=== PATIENT | male | born 1985 | race Caucasian/White ===

== ENCOUNTER 2020-09-11 14:39 | Inpatient (IN) | payer BC ==
[~2020-09-11] VITALS: Ht 177.8 cm; Wt 74.4 kg
--- NOTE | 2020-09-11 14:50 | NUR ---
[id number] [facility] for seizure like activity lasting 1 minute. +oral trauma. bg 165 user acceptance tester. Patient a/ox4, breathing even and unlabored, no sob noted, needs attended, kept comfortable.
[2020-09-11] MEDS ORDERED: IV NS 0.9% 1,000 ML BAG IV ONE (16:00)
[2020-09-11] MEDS ORDERED: LEVETIRACETAM (500MG) 1,000 MG in IV NS 0.9% 100 ML IV SCH (16:00)
[2020-09-11] MEDS ORDERED: LEVETIRACETAM (500MG) 1,000 MG in IV NS 0.9% 100 ML IV ONE (16:13)
--- NOTE | 2020-09-11 16:14 | NUR ---
patient a/ox4, was able to ambulate to restroom and gave a urine sample. Sample sent to the lab.
[2020-09-11 16:28] LABS: ALANINE AMINOTRANSFERASE 53 U/L (12-78); ALBUMIN 4.3 g/dL (3.4-5.0); ALCOHOL, BLOOD < 3 mg/dL (0-0); ALKALINE PHOSPHATASE 82 U/L (46-116); ASPARTATE AMINOTRANSFERASE 97 U/L (15-37); BILIRUBIN,DIRECT 0.7 mg/dL (0.0-0.2); BILIRUBIN,TOTAL 2.1 mg/dL (0.2-1.0); CALCIUM, SERUM 10.1 mg/dL (8.5-10.1); CARBON DIOXIDE 27 mmol/L (21-32); CHLORIDE 91 mmol/L (98-107); GLUCOSE 145 mg/dL (74-106); SODIUM SERUM 130 mmol/L (136-145); TOTAL PROTEIN, SERUM 8.4 g/dL (6.4-8.2); UREA NITROGEN, BLOOD 6 mg/dL (7-18)
[2020-09-11 16:29] LABS: BASOPHILS % (AUTO) 0.2 % (0.0-2.0); EOSINOPHILS % (AUTO) 0.1 % (0.0-6.0); HEMATOCRIT 42 % (39-51); HEMOGLOBIN 14.5 g/dL (13.5-17.5); LYMPHOCYTES # (AUTO) 0.6 /CMM (0.8-4.8); LYMPHOCYTES % (AUTO) 9.1 % (20.0-44.0); MEAN CORPUSCULAR HGB CONC 34 g/dl (31.0-36.0); MEAN CORPUSCULAR VOLUME 106 fL (80-96); MONOCYTES # (AUTO) 0.3 /CMM (0.1-1.30); MONOCYTES % (AUTO) 4.2 % (2.0-12.0); NEUTROPHILS % (AUTO) 86.4 % (43.0-81.0); PLATELET COUNT (AUTO) 228 /CMM (150-450); POTASSIUM 2.6 mmol/L (3.5-5.1); WHITE BLOOD COUNT (AUTO) 6.9 K/uL (4.3-11.0)
[2020-09-11] MEDS: POTASSIUM CL. PREMIX PERIPHER. 50 ML IV SCH ×4 (16:52→20:40)
--- NOTE | 2020-09-11 16:55 | NUR ---
PATIENT TAKEN TO CT, NO DISTRESS NOTED.
[2020-09-11] MEDS ORDERED: IOHEXOL-300 100 ML VIAL IV ONE (16:58)
[2020-09-11] MEDS ORDERED: IV NS 0.9% 250 ML IV ONE (16:58)
--- NOTE | 2020-09-11 17:45 | NUR ---
CALLED NURSING SUP FOR TELE BED.
--- NOTE | 2020-09-11 17:54 | NUR ---
NURSING SUP GAVE 312-1. NURSES NAME IS NEPTALI.
[2020-09-11 17:58] LABS: BAND % (MANUAL) 3 % (0.0-5.0); LYMPHOCYTES % (MANUAL) 10 % (16-48); MONOCYTES % (MANUAL) 7 % (0-11.0); NEUTROPHILS % (MANUAL) 80 (42-76)
[2020-09-11] MEDS ORDERED: ONDANSETRON HCL/PF 4 MG/2 ML VIAL IVP PRN (18:00)
[2020-09-11] MEDS ORDERED: POTASSIUM CHLORIDE 20 MEQ TAB.PRT.SR PO ONE ×2 (18:00→18:07)
[2020-09-11] MEDS ORDERED: Z GUARD REMEDY 2 OZ OINT TP PRN (18:00)
[2020-09-11] MEDS ORDERED: LORAZEPAM INJ 2 MG/ML VIAL IV PRN (18:00)
[2020-09-11] MEDS ORDERED: ACETAMINOPHEN 325 MG TABLET PO PRN (18:00)
--- NOTE | 2020-09-11 18:27 | NUR ---
REPORT GIVEN TO NEPTALI NAVARRETE FOR KACEY.
--- NOTE | 2020-09-11 18:41 | NUR ---
PATIENT TRANSFERRED TO ROOM 312-1 VIA ACLS PROTOCOL. ENDORSED 2 POTASSIUM IV BAGS TO NURSE. NEEDS ATTENDED.
--- NOTE | 2020-09-11 18:45 | NUR ---
Patient admitted from ER with ahsan reported by Hayley/LANDON.
[2020-09-11 19:00] VITALS: BP 150/102
--- NOTE | 2020-09-11 19:10 | NUR ---
HOT PLATE PRESS OPERATOR OPENING/ADMITTING NOTES RECEIVED PATIENT IN BED AWAKE ALERT AND ORIENTED X4 , ABLE TO MAKE NEEDS KNOWN AND CARRY ON CONVERSATION, RESPIRATIONS EVEN AND UNLABORED WITH EQUAL RISE AND FALL OF CHEST, SEIZURE PRECAUTIONS MAINTAINED, ON GRIT BLASTER SR 86. CURRENTLY POTASSIUM IS RUNNING AND PATIENT C/O PAIN . SKIN ASSESSED IV ASSESSED WNL. URINAL AT BEDSIDE AND WITHIN REACH,BELONGINGS LIST DONE, DENIES ANY SKIN ISSUES, RIGHT AC #18 G INTACT AND PATENT, NO REDNESS, NO INFILTRATION. ORIENTED TO STAFF AND CALL LIGHT AND KEPT WITHIN REACH, SAFETY PRECAUTIONS MAINTAINED, BED ALARM IN PLACE, LOW BED AND LOCKED, WILL CONTINUE TO CARRY OUT MD ORDERS AND MONITOR, FLUIDS AND SNACKS OFFERED.
[2020-09-11 20:00] VITALS: BP 150/102
[2020-09-11] MEDS: IV NS 0.9% 1,000 ML IV PRN (20:40)
[2020-09-12] VITALS (8 sets, daily range): BP systolic 138–152; BP diastolic 89–106
--- NOTE | 2020-09-12 05:00 | NUR ---
OUTBOUND SALES SPECIALIST NOTES PATIENT BP NOTED RANGING BETWEEN 148/105 AND 140/102, HR 72. PT DENIES PAIN, ANXIETY STATES "HE FEELS FINE". DENIES HYPERTENSION HISTORY AND DOES NOT TAKE MEDICATIONS AT HOME. CALLED [facility] TO NOTIFY FOR FURTHER RECOMMENDATIONS AWAITING ALL BACK. WILL CONTINUE TO MONITOR PATIENT REMAINS COMFORTABLE. Addendum: 09/12/20 at 0524 by ROZINA DYER RN AWAITING CALL BACK
--- NOTE | 2020-09-12 05:50 | NUR ---
rn internal medicine notes received call back from made aware of b/p finding and medical history, no new order at this time, possible etoh withdrawal per md continue to monitor. pt asymptomatic.
--- NOTE | 2020-09-12 06:32 | NUR ---
EXTERMINATOR TERMITE CLOSING NOTES PATIENT IN BED AWAKE ALERT AND ORIENTED X4 , ABLE TO MAKE NEEDS KNOWN AND CARRY ON CONVERSATION, RESPIRATIONS EVEN AND UNLABORED WITH EQUAL RISE AND FALL OF CHEST, SEIZURE PRECAUTIONS MAINTAINED, NO SEIZURE ACTIVITY THROUGHOUT SHIFT. ON STAVE GRADER SR 65. URINAL AT BEDSIDE AND WITHIN REACH, DENIES ANY SKIN ISSUES, RIGHT AC #18 G INTACT AND PATENT, NO REDNESS, NO INFILTRATION. CALL LIGHT, KEPT WITHIN REACH, SAFETY PRECAUTIONS MAINTAINED, BED ALARM IN PLACE, LOW BED AND LOCKED, WILL CONTINUE TO MONITOR AND ENDORSE TO NEXT SHIFT, FLUIDS AND SNACKS OFFERED.
[2020-09-12 06:35] LABS: ALBUMIN 3.6 g/dL (3.4-5.0); BILIRUBIN,TOTAL 1.4 mg/dL (0.2-1.0); CALCIUM, SERUM 8.7 mg/dL (8.5-10.1); CREATININE 0.8 mg/dL (0.6-1.3); PHOSPHORUS 2.8 mg/dL (2.5-4.9); POTASSIUM 3.2 mmol/L (3.5-5.1); THYROID STIMULATING HORMONE 2.592 uIU/mL (0.358-3.74)
[2020-09-12 06:38] LABS: BASOPHILS % (AUTO) 0.4 % (0.0-2.0); EOSINOPHILS % (AUTO) 0.3 % (0.0-6.0); HEMATOCRIT 37 % (39-51); HEMOGLOBIN 12.6 g/dL (13.5-17.5); LYMPHOCYTES # (AUTO) 1.1 /CMM (0.8-4.8); LYMPHOCYTES % (AUTO) 16.4 % (20.0-44.0); MEAN CORPUSCULAR HGB CONC 34 g/dl (31.0-36.0); MEAN CORPUSCULAR VOLUME 106 fL (80-96); MONOCYTES # (AUTO) 0.4 /CMM (0.1-1.30); MONOCYTES % (AUTO) 5.6 % (2.0-12.0); NEUTROPHILS # (AUTO) 5.2 /CMM (1.8-8.9); NEUTROPHILS % (AUTO) 77.3 % (43.0-81.0); PLATELET COUNT (AUTO) 199 /CMM (150-450); RED BLOOD CELL COUNT(AUTO) 3.46 MIL/uL (4.5-6.0); WHITE BLOOD COUNT (AUTO) 6.8 K/uL (4.3-11.0)
--- NOTE | 2020-09-12 08:05 | NUR ---
RN OPENING NOTE Patient is resting in bed, A/O x4, showing no signs of acute distress or SOB, stable on RA. Tele monitor SR 80s. Patient denies any pain or discomfort at this time. IV line in the RAC#18g is clean and intact running NS @ 75mls/hr. Patient is independent with care, ambulatory with BRP with steady gate. Bed is in lowest position, padded side rails x2 in upright position, call light is within reach, fall, safety, seizure and aspiration precautions enforced. Will continue with plan of care.
[2020-09-12] MEDS ORDERED: POTASSIUM CHLORIDE 20 MEQ TAB.PRT.SR PO ONE (08:30)
[2020-09-12] MEDS: IV NS 0.9% 1,000 ML IV PRN (13:35)
--- NOTE | 2020-09-12 18:39 | NUR ---
RN CLOSING NOTE Patient is resting in bed, A/O x4, showing no signs of acute distress or SOB, stable on RA. Tele monitor SR 80s. IV line in the RAC#18g is clean and intact running NS @ 75mls/hr. Patient is independent with care, ambulatory with BRP with steady gate. All patient needs met, all due medications given. Bed is in lowest position, padded side rails x2 in upright position, call light is within reach, fall, safety, seizure and aspiration precautions enforced. Will endorse to bullet casting operator for KACEY.
--- NOTE | 2020-09-12 19:44 | NUR ---
RN OPENING NOTE: Patient in bed resting comfortably. Patient is awake, alert, and oriented x4, able to make needs known. Patient breathing unlabored and equal on room air, no SOB or acute respiratory distress noted. IV access noted on right AC, 18 gauge, dry and intact, patent, no redness, or infiltration, and infusing NS@75mL/hr. Safety precaution is in place, bed is in the lowest level, bed is locked, alarm is on, side rails are padded and two side rails are up, and call light is within reach. Will continue to monitor.
--- NOTE | 2020-09-12 23:11 | NUR ---
Gave report to RNMatthew, for continuity of care.
[2020-09-13 00:12] VITALS: BP 155/113
[2020-09-13 04:59] VITALS: BP 150/91
[2020-09-13] MEDS: IV NS 0.9% 1,000 ML IV PRN (05:05)
[2020-09-13 05:28] VITALS: BP 150/91
--- NOTE | 2020-09-13 06:04 | NUR ---
MS/RN CLOSING NOTE Patient asleep in bed, A/O x4. Breathing even, unlabored. No acute distress or SOB on room air. IV site RAC 18g running NS 75 ml/hr, no redness or infiltration noted. Seizure precautions in place. Bed in low position, wheels locked, side rails up x2, call light within reach, will endorse to oncoming nurse.
--- NOTE | 2020-09-13 07:00 | NUR ---
COMMUTATOR INSPECTOR OPENING NOTES RECEIVED PT RESTING IN BED AT THIS TIME. AOX4. PT ABLE TO MAKE NEEDS KNOWN. NO SOB NOTED, NO S/S OF ANY ACUTE DISTRESS NOTED. NO C/O PAIN AT THIS TIME. RESPIRATIONS ARE EVEN AND UNLABORED WITH EQUAL RISE AND FALL IN CHEST. PT STABLE ON RA. IV ACCESS NOTED IN RAC G#18, INTACT, PATENT AND FLUSHING WELL. PT ON EXTERNAL TELE SALESPERSON WOMEN'S HATS READING SR IN THE 80s. SAFETY PRECAUTION IN PLACE AND MAINTAINED AT ALL TIMES. BED IN LOWEST LOCKED POSITION, HOB ELEVATED, SIDE RAILS UP X 2, CALL LIGHT WITHIN REACH. WILL CONTINUE TO MONITOR
[2020-09-13 08:00] VITALS: BP 156/98
[2020-09-13 11:46] VITALS: BP 147/100
--- NOTE | 2020-09-13 12:29 | NUR ---
LOG HAULERHADOOP ANALYST NOTES PATIENT DISCHARGED TO HOME WITH SELF CARE AT THIS TIME. PT IN MEDICALLY STABLE CONDITION. ALL CARE NEEDS, MEDICATION AND TREATMENT ADMINISTERED ANTICIPATED PER ORDER. PT DISCHARGE INSTRUCTIONS PROVIDED AND PT VERBALIZED UNDERSTANDING. . ALL DISCHARGE DOCUMENTATION READY AND SIGNED BY THE PATIENT. BELONGINGS ACCOUNTED FOR, SIGNED BY PT AND FILED IN CHART. IV ACCESS REMOVED, PRESSURE APPLIED, SECURED WITH GAUZE AND TAPE. NO BLEEDING NOTED, NO S/S OF INFILTRATION NOTED. PT ACCOMPANIED TO [facility]NA
== END 2020-09-13 12:25 | disposition home or self-care (01) | DRG 100 ==
LOC: ER 14:45 → TELE 18:08
PROVIDERS: ADMIT Internal Medicine; ATTEND Internal Medicine
DX: G40.909 Epilepsy, unspecified, not intractable, without status epilepticus (principal); G93.41 Metabolic encephalopathy; F10.139 Alcohol abuse with withdrawal, unspecified; E87.6 Hypokalemia; Y90.0 Blood alcohol level of less than 20 mg/100 ml; F12.10 Cannabis abuse, uncomplicated; G47.00 Insomnia, unspecified; F17.210 Nicotine dependence, cigarettes, uncomplicated
CPT/HCPCS: 36415; 70470-TC; 71045-TC; 80048-TC; 80053-TC; 80061-TC; 80076-TC; 82962-TC; 83735-TC; 84100-TC; 84443-TC; 85025-TC; 85730-TC; 87081-TC; 95819-TC; G0378; G0480; J1953; J3480; J7030; J7050; Q9967